=== PATIENT | female | born 1950 | race Caucasian/White ===

== ENCOUNTER 2022-06-29 11:19 | Emergency (ER) | payer MEDICARE, BC ==
[2022-06-29] MEDS ORDERED: Bupivacaine 0.25% 10 ML VIAL ONE (13:00)
[2022-06-29] MEDS ORDERED: Diazepam 5 MG TAB ONE (13:00)
== END 2022-06-29 14:38 ==
LOC: ERS 11:19
DX: S80.01XA Contusion of right knee, initial encounter (principal); S63.065A Dislocation of metacarpal (bone), proximal end of left hand, initial encounter; W17.89XA Other fall from one level to another, initial encounter
CPT/HCPCS: 26700; S0020